=== PATIENT | female | born 1990 | race African-American/Black ===

== ENCOUNTER 2017-12-17 17:52 | Emergency (ER) | payer OTHER ==
[~2017-12-17] VITALS: Ht 167.6 cm; Wt 77.6 kg
[2017-12-17] MEDS ORDERED: NAPROSYN500 MG PO (18:23)
[2017-12-17] MEDS ORDERED: NORFLEX100 MG PO (18:23)
[2017-12-17 18:54] VITALS: BP 130/80
== END 2017-12-17 20:04 | disposition home or self-care (01) ==
LOC: ER 17:52
DX: S29.012A Strain of muscle and tendon of back wall of thorax, initial encounter (principal); X58.XXXA Exposure to other specified factors, initial encounter; Y93.89 Activity, other specified; Y92.89 Other specified places as the place of occurrence of the external cause; Y99.8 Other external cause status

== ENCOUNTER 2018-12-12 23:44 | Emergency (ER) | payer OTHER ==
[~2018-12-12] VITALS: Ht 167.6 cm; Wt 86.2 kg
[~2018-12-12 23:44] MED LIST: NAPROSYN500 MG PO; NORFLEX100 MG PO
[2018-12-13] MEDS ORDERED: PRENATAL PO (00:01)
[2018-12-13 00:52] VITALS: BP 127/72
== END 2018-12-13 00:57 | disposition home or self-care (01) ==
LOC: ER 23:44
DX: O26.893 Other specified pregnancy related conditions, third trimester (principal); R42 Dizziness and giddiness; R51 Headache; R10.9 Unspecified abdominal pain; Z3A.36 36 weeks gestation of pregnancy

== ENCOUNTER 2021-03-06 09:56 | Emergency (ER) | payer OTHER ==
[~2021-03-06] VITALS: Ht 167.6 cm; Wt 81.7 kg
[~2021-03-06 09:56] MED LIST changes: +PRENATAL PO
[2021-03-06 10:28] LABS: URINE BILIRUBIN NEGATIVE (Negative); URINE BLOOD NEGATIVE (Negative); URINE CLARITY CLEAR; URINE COLOR YELLOW; URINE GLUCOSE-RANDOM* NEGATIVE (Negative); URINE KETONES NEGATIVE (Negative); URINE LEUKOCYTES-REFLEX NEGATIVE (Negative); URINE NITRITE-REFLEX NEGATIVE (Negative); URINE PROTEIN (DIPSTICK) NEGATIVE (Negative)
[2021-03-06 10:47] LABS: ABSOLUTE NEUTROPHILS 4.5 thou/uL (1.4-8.2); BASOPHILS 1.1 % (0.0-2.0); EOSINOPHILS 0.3 % (0.0-3.0); HEMATOCRIT 39.2 % (37.0-47.0); LYMPHOCYTES 29.3 % (24.0-44.0); MCH 28.5 pg (26.0-34.0); MCHC 33.1 g/dL (28.0-37.0); MCV 86.1 fL (80.0-100.0); MONOCYTES 5.8 % (1.0-8.0); PLATELET COUNT 271 thou/uL (150-400); POLYS 63.5 % (36.0-66.0); RBC 4.56 mil/uL (4.20-5.00); RDW 13.6 % (10.5-14.5); WBC 7.1 thou/uL (4.0-11.0)
[2021-03-06 10:56] LABS: CALCIUM 9.4 mg/dL (8.5-10.1); CREATININE 0.8 mg/dL (0.6-1.0); POTASSIUM 3.9 mmol/L (3.5-5.1)
[2021-03-06 11:03] LABS: ALBUMIN 3.9 g/dL (3.4-5.0); TOTAL BILIRUBIN 0.5 mg/dL (0.2-1.0); TOTAL PROTEIN 8.4 g/dL (6.4-8.2)
[2021-03-06 12:55] VITALS: BP 125/70
== END 2021-03-06 12:55 | disposition home or self-care (01) ==
LOC: ER 09:56
PROVIDERS: Emergency Medicine
DX: R10.2 Pelvic and perineal pain (principal); R10.30 Lower abdominal pain, unspecified; R30.0 Dysuria

== ENCOUNTER 2021-05-15 09:33 | Emergency (ER) | payer OTHER ==
[~2021-05-15] VITALS: Ht 167.6 cm; Wt 81.7 kg
[2021-05-15 09:36] VITALS: BP 144/78
[2021-05-15] MEDS ORDERED: PENICILLIN V P500 MG PO (09:51)
== END 2021-05-15 09:58 | disposition home or self-care (01) ==
LOC: ER 09:33
DX: K04.7 Periapical abscess without sinus (principal)